=== PATIENT | male | born 1985 | race Caucasian/White ===

== ENCOUNTER 2017-06-15 09:05 | Emergency (ER) | payer OTHER ==
[~2017-06-15] VITALS: Ht 170.2 cm; Wt 80.0 kg
[2017-06-15] MEDS ORDERED: FLEXERIL5 M1 PO (10:41)
[2017-06-15] MEDS ORDERED: IBUPROFEN600 MG PO (10:41)
[2017-06-15 10:44] VITALS: BP 132/70
== END 2017-06-15 10:47 | disposition home or self-care (01) | DRG 563 ==
LOC: ED 09:05
DX: S39.012A Strain of muscle, fascia and tendon of lower back, initial encounter (principal); F17.210 Nicotine dependence, cigarettes, uncomplicated; W10.9XXA Fall (on) (from) unspecified stairs and steps, initial encounter; Y92.009 Unspecified place in unspecified non-institutional (private) residence as the place of occurrence of the external cause

== ENCOUNTER 2017-06-29 06:05 | Emergency (ER) | payer MEDICAID ==
[~2017-06-29] VITALS: Ht 170.2 cm; Wt 90.0 kg
[~2017-06-29 06:05] MED LIST: FLEXERIL5 M1 PO; IBUPROFEN600 MG PO
[2017-06-29] MEDS ORDERED: METFORMIN500 M1 PO (06:18)
[2017-06-29] MEDS ORDERED: BACTRIM DS1 TAB PO (06:57)
[2017-06-29] MEDS ORDERED: LORTAB 10-325 M1 TAB PO (06:57)
[2017-06-29] MEDS ORDERED: CEPHALEXIN500 MG PO (06:57)
[2017-06-29 07:03] VITALS: BP 141/76
[2017-06-30] MEDS ORDERED: BACTRIM DS1 TAB PO (17:40)
== END 2017-06-29 07:06 | disposition home or self-care (01) | DRG 603 ==
LOC: ED 06:05
PROC: 0H9GXZZ Drainage of Left Hand Skin, External Approach (ICD-10-PCS; principal; 2017-06-29)
DX: L02.512 Cutaneous abscess of left hand (principal); B95.61 Methicillin susceptible Staphylococcus aureus infection as the cause of diseases classified elsewhere

== ENCOUNTER 2017-06-30 16:21 | Emergency (ER) | payer MEDICAID ==
[~2017-06-30] VITALS: Ht 170.2 cm; Wt 91.0 kg
[~2017-06-30 16:21] MED LIST changes: +BACTRIM DS1 TAB PO; +CEPHALEXIN500 MG PO; +LORTAB 10-325 M1 TAB PO; +METFORMIN500 M1 PO
[2017-06-30] MEDS ORDERED: BACTRIM DS1 TAB PO (17:40)
[2017-06-30 17:49] VITALS: BP 149/89
== END 2017-06-30 17:49 | disposition home or self-care (01) | DRG 603 ==
LOC: ED 16:21
DX: L02.512 Cutaneous abscess of left hand (principal); Z48.01 Encounter for change or removal of surgical wound dressing